=== PATIENT | male | born 1975 | race African-American/Black ===

== ENCOUNTER 2019-06-18 20:36 | Emergency (ER) | payer MEDICAID ==
[~2019-06-18] VITALS: Ht 188 cm; Wt 93.0 kg
[~2019-06-18 20:36] MED LIST: IBUPROFEN 800800 MG PO; NORCO 5-325 TA1 EACH PO; PROMETHAZINE/C118 ML PO
[2019-06-18 20:57] VITALS: BP 125/68
[2019-06-18] MEDS ORDERED: FANAPT6 MG PO (21:06)
[2019-06-18] MEDS ORDERED: PROAIR HFA8.5 GM INH (21:07)
--- NOTE | 2019-06-19 16:46 | EKG ---
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: ANDRE : 1975 Requested By: Lenora Couch Order Number: [id number] MD: Brayden Adler Measurements Intervals [place] Rate: 70 P: 59 TX: 177 QRS: 58 QRSD: 85 T: 35 QT: 390 QTc: 421 Interpretive Statements Sinus rhythm Probable left atrial enlargement Baseline wander in lead(s) II,III,aVF No previous ECG available for comparison Electronically Signed On 06-19-2019 16:45:15 CDT by Brayden Adler [email or web address] <ELECTRONICALLY SIGNED> By: Brayden Adler MD, [facility] 06/19/19 [id number] Brayden Adler MD, [facility] /EPI
== END 2019-06-18 21:24 | disposition home or self-care (01) ==
LOC: M.ERS 20:36
DX: M25.551 Pain in right hip (principal); F17.210 Nicotine dependence, cigarettes, uncomplicated